=== PATIENT | female | born 1945 | race Asian ===

== ENCOUNTER 2018-06-09 01:06 | Emergency (ER) | payer MEDICARE, BC ==
[~2018-06-09] VITALS: Ht 162.6 cm; Wt 55.8 kg
[2018-06-09] MEDS ORDERED: ROCURONIUM BROMIDE 50 MG/5 ML IV ONE (01:09)
--- NOTE | 2018-06-09 01:17 | NUR ---
CODE STROKE ACTIVATED.
--- NOTE | 2018-06-09 01:20 | NUR ---
[facility] CALLED; SPOKE TO ANGELA.
--- NOTE | 2018-06-09 01:22 | NUR ---
PT TO CT
--- NOTE | 2018-06-09 01:24 | NUR ---
MD OLSON SPEAKING WITH TELE STROKE
--- NOTE | 2018-06-09 01:24 | NUR ---
DR. MONK TELE NEUROLOGIST FROM [facility] SPEAKING TO DR. OLSON.
--- NOTE | 2018-06-09 01:25 | NUR ---
Scout watkins in ED - 06/09/18 at 0127 by RUPERTO pt taken to CT
[2018-06-09] MEDS ORDERED: IOHEXOL-350 100 ML VIAL IV ONE (01:26)
[2018-06-09] MEDS ORDERED: IV NS 0.9% 250 ML IV ONE (01:26)
[2018-06-09] MEDS ORDERED: CT SWABBABLE VALVE TRANS SET 1 EA INFUS.SET MC ONE (01:26)
[2018-06-09] MEDS ORDERED: hydrALAZINE HCL IV 20 MG VIAL IV ONE (01:30)
[2018-06-09 01:41] LABS: BASOPHILS % (AUTO) 0.3 % (0.0-2.0); EOSINOPHILS % (AUTO) 1.2 % (0.0-6.0); HEMATOCRIT 30 % (33-45); HEMOGLOBIN 10.4 g/dL (11.5-14.8); LYMPHOCYTES # (AUTO) 1.6 /CMM (0.8-4.8); LYMPHOCYTES % (AUTO) 22.8 % (20.0-44.0); MEAN CORPUSCULAR HGB CONC 34 g/dl (31.0-36.0); MEAN CORPUSCULAR VOLUME 97 fL (82-100); MONOCYTES # (AUTO) 0.4 /CMM (0.1-1.30); MONOCYTES % (AUTO) 5.5 % (2.0-12.0); NEUTROPHILS % (AUTO) 70.2 % (43.0-81.0); PLATELET COUNT (AUTO) 52 /CMM (150-450); RED BLOOD CELL COUNT(AUTO) 3.12 MIL/uL (4.0-5.2); WHITE BLOOD COUNT (AUTO) 7.1 K/uL (4.3-11.0)
[2018-06-09 01:46] LABS: CALCIUM, SERUM 9.2 mg/dL (8.5-10.1); CARBON DIOXIDE 16 mmol/L (21-32); CHLORIDE 106 mmol/L (98-107); CREATININE 5.2 mg/dL (0.6-1.3); GLUCOSE 195 mg/dL (74-106); POTASSIUM 4.7 mmol/L (3.5-5.1); SODIUM SERUM 141 mmol/L (136-145); UREA NITROGEN, BLOOD 57 mg/dL (7-18)
--- NOTE | 2018-06-09 01:47 | NUR ---
SUCCESSFUL INTUBATION
[2018-06-09] MEDS ORDERED: hydrALAZINE HCL IV 20 MG VIAL ONE (01:48)
[2018-06-09 01:51] LABS: CHOLESTEROL 205 mg/dL (<200); HDL CHOLESTEROL 35 mg/dL (40-60); LDL 159 mg/dL (0-99); TRIGLYCERIDES 175 mg/dL (30-150)
[2018-06-09 01:52] LABS: ALANINE AMINOTRANSFERASE 37 U/L (12-78); ALBUMIN 3.5 g/dL (3.4-5.0); ALKALINE PHOSPHATASE 71 U/L (46-116); ASPARTATE AMINOTRANSFERASE 44 U/L (15-37); BILIRUBIN,DIRECT 0.2 mg/dL (0.0-0.2); BILIRUBIN,TOTAL 0.7 mg/dL (0.2-1.0); TOTAL PROTEIN, SERUM 7.7 g/dL (6.4-8.2)
--- NOTE | 2018-06-09 01:52 | NUR ---
DR. GLORIA CALLED; MESSAGE LEFT
[2018-06-09 01:55] LABS: LYMPHOCYTES % (MANUAL) 17 % (16-48); MONOCYTES % (MANUAL) 4 % (0-11.0); NEUTROPHILS % (MANUAL) 79 (42-76)
[2018-06-09] MEDS ORDERED: ROCURONIUM BROMIDE 100 MG/10 ML VIAL IV ONE (02:00)
--- NOTE | 2018-06-09 02:00 | NUR ---
HYDRALAZINE/APRESOLINE 10MG ORDERED BY . MED WAS UNAVAILABLE IN ER PYXIS. HAD TO GET IT FROM [facility]. [facility] DENTIST ATTENDANT OVERRIDED MED.
--- NOTE | 2018-06-09 02:04 | NUR ---
DR. GLORIA CALLED AGAIN; LEFT MESSAGE
[2018-06-09] MEDS ORDERED: LOSA100T31 PO (02:10)
--- NOTE | 2018-06-09 02:18 | NUR ---
CALLED DR. GLORIA; LEFT MESSAGE
--- NOTE | 2018-06-09 02:22 | NUR ---
DR. CROSS CALLED; LEFT MESSAGE
[2018-06-09 02:25] LABS: APPEARANCE,URINE CLEAR (CLEAR); BILIRUBIN,URINE NEGATIVE (NEGATIVE); BLOOD, URINE 2+ Ery/uL (NEGATIVE); COLOR,URINE YELLOW (YELLOW); KETONES,URINE NEGATIVE (NEGATIVE); LEUKOCYTE ESTERASE ,URINE NEGATIVE (NEGATIVE); NITRITE, URINE NEGATIVE (NEGATIVE); PH,URINE 6.5 (5.0-8.0); PROTEIN,URINE 2+ mg/dl (NEGATIVE); UGLUCOSE TRACE mg/dL (NEGATIVE); UROBILINOGEN,URINE 0.2 EU/dL (0.2)
--- NOTE | 2018-06-09 02:26 | NUR ---
CASEY CROSS CLAIM AUDITOR CALLED; MESSAGE LEFT
--- NOTE | 2018-06-09 02:28 | NUR ---
DR. BRICE NEUROSURGEON CALLED; MESSAGE LEFT
--- NOTE | 2018-06-09 02:30 | NUR ---
DR. LUNA STRAUSS CALLED.
--- NOTE | 2018-06-09 02:31 | NUR ---
recent VS: BP 111/66 HR 109 O2 sat: 99% R 14
--- NOTE | 2018-06-09 02:36 | NUR ---
DR. GLORIA SPEAKING TO DR. OLSON
--- NOTE | 2018-06-09 02:55 | NUR ---
Pt 's BP DROPPING TO 88/49. MD MADE AWARE. BOLUS NS 500ML ORDERED.
[2018-06-09] MEDS ORDERED: IV NS 0.9% 500 ML BAG IV ONE (03:00)
[2018-06-09 03:11] LABS: BACTERIA,URINE Rare /HPF (None Seen); RBC,URINE 51-80 /HPF (0-2); SQUAMOUS EPITHELIAL CELL,UR Few /HPF (None Seen)
--- NOTE | 2018-06-09 03:15 | NUR ---
SPOKE TO LANA FALCON [place]. STATES "WE WILLC ALL YOU BACK WITH AN ETA".
--- NOTE | 2018-06-09 03:16 | NUR ---
MD AT BEDSIDE SPEAKING WITH FAMILY
[2018-06-09] MEDS ORDERED: DOPamine 400MG/D5W 250ML RTU 250 ML IV ONE (03:22)
[2018-06-09] MEDS ORDERED: EPINEPHRINE (1:10,000) SYRINGE 1 MG/10 ML DISP.SYRIN ONE (03:23)
[2018-06-09] MEDS ORDERED: NOREPINEPHRINE 4 MG/4 ML AMPUL IV ONE (03:24)
--- NOTE | 2018-06-09 03:27 | NUR ---
LEVOPHED 8MG @2MCG/HR; IVPB VIA RHAND #20G; INFUSING UPON TRANSFER TO [facility]
--- NOTE | 2018-06-09 03:36 | NUR ---
TRANSFER TO [facility] ROOM ASSIGNMENT: 4516-1 NUMBER FROM REPORT: OPTION 1 [id number] [id number]
[2018-06-09 03:45] VITALS: BP 124/77
--- NOTE | 2018-06-09 03:46 | NUR ---
Pt BEING TRANSPORTED OUT OF FACILITY BY EMT/AMBULANCE TO [facility]. Pt SAFELY TRANSFERED TO [facility].
--- NOTE | 2018-06-09 03:55 | NUR ---
REPORT GIVEN TO DAVID DIAZ AT [facility]
[2018-06-09] MEDS ORDERED: NOREPINEPHRINE 8 MG in IV D5W 500 ML IV PRN (04:00)
== END 2018-06-09 04:00 | disposition short-term general hospital (02) ==
LOC: ER 01:08
DX: I62.9 Nontraumatic intracranial hemorrhage, unspecified (principal); G93.40 Encephalopathy, unspecified; I16.1 Hypertensive emergency; Z85.43 Personal history of malignant neoplasm of ovary; Z85.42 Personal history of malignant neoplasm of other parts of uterus; Z79.899 Other long term (current) drug therapy
CPT/HCPCS: 36415; 70450-TC; 70496-TC; 70498-TC; 71045-TC; 80048-TC; 80061-TC; 80076-TC; 80305; 81000-TC; 82962-TC; 83605-TC; 84484-TC; 85025-TC; 85730-TC; 86850-TC; 87040-TC; 94002; 94760-TC; A4606; J0171; J0360; J1265; J7040; J7050; J7060; Q9967; Z7610